=== PATIENT | male | born 2000 | race Caucasian/White ===

== ENCOUNTER 2024-01-16 12:27 | Emergency (ER) | payer MEDICAID ==
[~2024-01-16] VITALS: Ht 190.5 cm; Wt 74.0 kg
[2024-01-16 12:33] VITALS: O2SAT 99
[2024-01-16] MEDS: IBUPROFEN 600MG TABLET PO STA (14:32)
[2024-01-16] MEDS ORDERED: AMOX1TAB16 MT (15:00)
[2024-01-16 15:25] VITALS: BP 110/76; PULSE 72; RESP 18; TEMP 98.1
== END 2024-01-16 15:26 | disposition home or self-care (01) ==
LOC: ER 12:35
DX: S61.432A Puncture wound without foreign body of left hand, initial encounter (principal); W54.0XXA Bitten by dog, initial encounter; Y93.89 Activity, other specified; Y92.89 Other specified places as the place of occurrence of the external cause; Y99.8 Other external cause status
CPT/HCPCS: 73130; 99283